=== PATIENT | female | born 1985 | race Caucasian/White ===

== ENCOUNTER 2017-11-20 18:49 | Emergency (ER) | payer MEDICARE, OTHER ==
[~2017-11-20 18:49] MED LIST: AMOXICILLIN500 MG OR; AMOXICILLIN875 MG OR; AMOXIL875 MG OR; AUGMENTIN500 MG OR; BENADRYL25 M1 OR; BENADRYL25 MG OR; BUSPAR10 MG PO; CIPRO500 MG OR; DARVOCET-N 100100 MG OR; ELIMITE5 % EX; HYDROXYZ HCL25 MG OR; LIDOCAINE VISC20 ML MT; LITHIUM CARB300 MG PO; LOESTRIN1 TAB OR; LORTAB 10 PO; LORTAB 5 OR; LORTAB 7.5-3251 TAB PO; LORTAB5 PO; MEDDOSEPAK OR; NAPROSYN500 MG PO; NO HOME MEDS; PAXIL40 MG PO; PENICILLN VK250 MG OR; PENICILLN VK500 M1 OR; PENICILLN VK500 MG OR; PREDNISONE20 MG OR; ROBITUSSIN AC10 ML OR; TRAMADOL HCL50 MG OR; TRAMADOL HCL50 MG PO; TRAZODONE100 MG PO; ULTRAM50 MG OR; ZITHROMAX250 MG PO; ZPAK OR
== END 2017-11-20 19:25 | disposition left against medical advice (07) ==
LOC: ED 18:49 → LWOBS 19:25
DX: Z91.19 Patient's noncompliance with other medical treatment and regimen (principal)

== ENCOUNTER → 2023-07-09 | Emergency (ER) | payer SELFPAY ==
[2023-07-09] VITALS (7 sets, daily range): BP systolic 165–186; BP diastolic 102–111
[~2023-07-09] VITALS: Ht 165.1 cm; Wt 108.9 kg
[~2023-07-09] MED LIST changes: +AMOX/K CLAV875 M1 PO; +LIDOcaine HCl 1% (Local Anesth.) 20 ML VIAL IM STA; +cefTRIAXone SODIUM 1 GM/VIAL SDV IM ONE; +methylPREDNISolone Sod Succ 40 MG/ML SDV IM ONE
== END | disposition home or self-care (01) | DRG 153 ==
LOC: ED 18:13
DX: J03.90 Acute tonsillitis, unspecified (principal)